=== PATIENT | male | born 1940 | race African-American/Black ===

== ENCOUNTER 2019-04-25 19:48 | Inpatient (IN) | payer OTHER, MEDICAID ==
[~2019-04-25] VITALS: Ht 182.9 cm; Wt 83.9 kg
[2019-04-25 20:00] VITALS: BP 101/53
[2019-04-25 21:17] LABS: BASOPHILS % 1.5 % (0.0-2.0); EOSINOPHILS % 2.4 % (0.0-5.0); HEMATOCRIT. 32.9 % (42.0-52.0); HEMOGLOBIN. 11.1 g/dL (14.0-18.0); LYMPHOCYTES % 7.6 % (20.0-50.0); MEAN CORPUSCULAR HEMOGLOBIN 34.2 pg (28.0-32.0); MEAN CORPUSCULAR VOLUME 101.1 fL (80.0-94.0); MEAN PLATELET VOLUME 8.7 fl (7.4-10.4); MONOCYTES % 7.7 % (2.0-8.0); NEUTROPHILS % 80.8 % (40.0-76.0); PLATELET 209 x1000/uL (130-400); RED BLOOD CELL COUNT 3.25 mill/uL (4.7-6.1); RED CELL DISTRIBUTION WIDTH 14.8 % (11.6-14.6)
[2019-04-25 21:22] LABS: CHLORIDE 102 mEq/L (98-107)
[2019-04-25] MEDS ORDERED: SODIUM CHLORIDE 0.9% 1,000 ML IV ONE (21:30)
[2019-04-25] MEDS ORDERED: ASPIRIN 325MG TABLET PO ONE (22:00)
[2019-04-25 22:45] VITALS: BP 130/68
[2019-04-25] MEDS ORDERED: FURO-151 PO (23:57)
[2019-04-26] MEDS ORDERED: IPRATROPIUM/ALBUTEROL 0.5-3(2.5)MG/3ML NEB HHN PRN
[2019-04-26] MEDS ORDERED: HYDROCODONE/ACETAMINOPHEN 5/325MG TABLET PO PRN
[2019-04-26] MEDS ORDERED: ONDANSETRON HCL 4MG/2ML INJ IV PRN
[2019-04-26] MEDS ORDERED: ACETAMINOPHEN 325MG TABLET PO PRN
[2019-04-26] MEDS ORDERED: CLONIDINE 0.1MG TABLET PO PRN
[2019-04-26 04:00] VITALS: BP 101/53
[2019-04-26 07:30] LABS: BASOPHILS % 0.7 % (0.0-2.0); EOSINOPHILS % 3.7 % (0.0-5.0); HEMATOCRIT. 30.2 % (42.0-52.0); HEMOGLOBIN. 10.3 g/dL (14.0-18.0); LYMPHOCYTES % 11.9 % (20.0-50.0); MEAN CORPUSCULAR HEMOGLOBIN 34.3 pg (28.0-32.0); MEAN CORPUSCULAR VOLUME 100.3 fL (80.0-94.0); MEAN PLATELET VOLUME 8.5 fl (7.4-10.4); MONOCYTES % 10.8 % (2.0-8.0); NEUTROPHILS % 72.9 % (40.0-76.0); PLATELET 185 x1000/uL (130-400); RED BLOOD CELL COUNT 3.02 mill/uL (4.7-6.1); RED CELL DISTRIBUTION WIDTH 14.8 % (11.6-14.6)
[2019-04-26 07:33] LABS: CHLORIDE 105 mEq/L (98-107)
[2019-04-26 07:44] LABS: LDL CHOLESTEROL 107 mg/dL (5-100)
[2019-04-26 07:45] LABS: CREATINE KINASE 67 IU/L (39-308); HDL CHOLESTEROL 41 mg/dL (40-59); T4 FREE 1.26 ng/dL (0.76-1.46)
[2019-04-26 07:57] VITALS: BP 116/63
[2019-04-26] MEDS: ENOXAPARIN 40MG/0.4ML SYR SUBCUT SCH (09:15)
[2019-04-26] MEDS: ASPIRIN 81MG TABLET PO SCH (10:24)
[2019-04-26 12:00] VITALS: BP 107/59
[2019-04-26 16:00] VITALS: BP 98/59
[2019-04-26] MEDS: ATORVASTATIN CALCIUM 20MG TABLET PO SCH (20:51)
[2019-04-27] VITALS: BP 105/58
[2019-04-27 04:00] VITALS: BP 105/68
[2019-04-27 06:46] LABS: METHADONE URINE SCREEN NEGATIVE (NEGATIVE); OPIATES URINE SCREEN NEGATIVE (NEGATIVE); PHENCYCLIDINE URINE SCREEN NEGATIVE (NEGATIVE)
[2019-04-27 06:47] LABS: BASOPHILS % 0.5 % (0.0-2.0); EOSINOPHILS % 3.6 % (0.0-5.0); HEMATOCRIT. 30.9 % (42.0-52.0); HEMOGLOBIN. 10.6 g/dL (14.0-18.0); LYMPHOCYTES % 10.7 % (20.0-50.0); MEAN CORPUSCULAR HEMOGLOBIN 34.5 pg (28.0-32.0); MEAN CORPUSCULAR VOLUME 100.3 fL (80.0-94.0); MEAN PLATELET VOLUME 8.9 fl (7.4-10.4); MONOCYTES % 11.4 % (2.0-8.0); NEUTROPHILS % 73.8 % (40.0-76.0); PLATELET 193 x1000/uL (130-400); RED BLOOD CELL COUNT 3.08 mill/uL (4.7-6.1)
[2019-04-27 06:47] LABS: *AMPHETAMINES SCREEN URINE NEGATIVE (NEGATIVE); *BARBITURATES SCREEN URINE NEGATIVE (NEGATIVE); *BENZODIAZEPINES SCREEN URINE NEGATIVE (NEGATIVE); *COCAINE SCREEN URINE NEGATIVE (NEGATIVE); CANNABINOID URINE SCREEN NEGATIVE (NEGATIVE)
[2019-04-27 07:45] VITALS: BP 108/62
[2019-04-27] MEDS: ASPIRIN 81MG TABLET PO SCH (09:31)
[2019-04-27] MEDS: ENOXAPARIN 40MG/0.4ML SYR SUBCUT SCH (09:31)
[2019-04-27 12:00] VITALS: BP_SYST 107; BP_SYST 111; BP_SYST 98; BP_DIAS 60; BP_DIAS 62
[2019-04-27] MEDS: DOCUSATE SODIUM SUGAR FREE 100MG/10ML UDC NG SCH (13:27)
[2019-04-27 16:00] VITALS: BP 108/59
[2019-04-27 20:00] VITALS: BP 111/60
[2019-04-27] MEDS: ATORVASTATIN CALCIUM 20MG TABLET PO SCH (20:48)
[2019-04-27] MEDS: CARVEDILOL 3.125 MG TABLET PO SCH (20:49)
[2019-04-28] VITALS: BP 106/62
[2019-04-28 04:00] VITALS: BP 118/69
[2019-04-28 08:00] VITALS: BP 103/60
[2019-04-28] MEDS: CARVEDILOL 3.125 MG TABLET PO SCH ×2 (09:00→20:37)
[2019-04-28] MEDS ORDERED: LISINOPRIL 2.5MG TABLET PO SCH (09:00)
[2019-04-28] MEDS: ENOXAPARIN 40MG/0.4ML SYR SUBCUT SCH (09:09)
[2019-04-28] MEDS: ASPIRIN 81MG TABLET PO SCH (09:10)
[2019-04-28] MEDS: DOCUSATE SODIUM SUGAR FREE 100MG/10ML UDC NG SCH (09:10)
[2019-04-28 12:00] VITALS: BP 110/69
[2019-04-28 16:00] VITALS: BP_SYST 93; BP_SYST 96; BP_DIAS 54; BP_DIAS 77
[2019-04-28 17:03] LABS: BG BASE EXCESS -1.7 mmol/L (-2.0-2.0); BG CARBOXYHEMOGLOBIN 0.2 % (0.5-1.5); BG FRACTION INSPIRED OXYGEN 21; BG HCO3 ACT 21.7 mmol/L (22.0-26.0); BG METHEMOGLOBIN 0.3 % (0.0-1.5); BG OXYHEMOGLOBIN 96.5 % (94.0-97.0); BG PCO2 32.5 mmHg (35.0-45.0); BG PH 7.442 (7.350-7.450); BG PO2 96.4 mmHg (75.0-100.0); BG SAMPLE SITE RIGHT RADIAL; BG TOTAL HEMOGLOBIN 11.9 g/dL (12.0-18.0); BG VENT MODE ROOM AIR
[2019-04-28 17:54] LABS: PROTHROMBIN TIME 10.7 sec (9.6-11.0)
[2019-04-28 20:00] VITALS: BP 113/66
[2019-04-28] MEDS: ATORVASTATIN CALCIUM 20MG TABLET PO SCH (20:37)
[2019-04-28 21:47] LABS: CLARITY URINE CLEAR (CLEAR); COLOR URINE YELLOW (YELLOW); KETONES URINE NEGATIVE (NEGATIVE); LEUKOCYTE ESTERASE URINE NEGATIVE (NEGATIVE); NITRITE URINE NEGATIVE (NEGATIVE); OCCULT BLOOD URINE NEGATIVE (NEGATIVE); PROTEIN URINE NEGATIVE (NEGATIVE); SPECIFIC GRAVITY URINE 1.008 (1.005-1.030)
[2019-04-29] VITALS (7 sets, daily range): BP systolic 97–130; BP diastolic 53–76
[2019-04-29 07:38] LABS: HEMATOCRIT 32.4 % (42.0-52.0); HEMOGLOBIN 11.1 g/dL (14.0-18.0); MEAN CORPUSCULAR HEMOGLOBIN 34.5 pg (28.0-32.0); MEAN CORPUSCULAR VOLUME 100.3 fL (80.0-94.0); PLATELET 195 x1000/uL (130-400); RED BLOOD CELL COUNT 3.23 mill/uL (4.7-6.1); RED CELL DISTRIBUTION WIDTH 14.8 % (11.6-14.6)
[2019-04-29] MEDS ORDERED: LOSARTAN POTASSIUM 25 MG TABLET PO SCH (09:00)
[2019-04-29] MEDS: DOCUSATE SODIUM SUGAR FREE 100MG/10ML UDC NG SCH (10:02)
[2019-04-29] MEDS: CARVEDILOL 3.125 MG TABLET PO SCH (10:02)
[2019-04-29] MEDS: ASPIRIN 81MG TABLET PO SCH (10:02)
[2019-04-29] MEDS: ENOXAPARIN 40MG/0.4ML SYR SUBCUT SCH (10:03)
[2019-04-29] MEDS ORDERED: LACTULOSE 20G/30ML UDC PO PRN ×2 (13:00)
[2019-04-29] MEDS ORDERED: ASPI-1393 MT (14:25)
[2019-04-29] MEDS ORDERED: LOSA25TA3 MT (14:25)
[2019-04-29] MEDS ORDERED: ATOR20TA MT (14:25)
[2019-04-29] MEDS ORDERED: LACT10SO MT (14:25)
[2019-04-29] MEDS ORDERED: COR3 MT (14:25)
[2019-04-29] MEDS ORDERED: BISACODYL 10MG SUPP PR PRN (14:30)
[2019-04-29] MEDS ORDERED: LACTULOSE 20G/30ML UDC PO SCH (14:30)
== END 2019-04-29 17:13 | disposition home or self-care (01) | DRG 74 ==
LOC: ER 19:48 → 8WST 21:52 → EDBEDREQ 21:55 → EDBEDREQTM 21:55 → ENRESERV 22:13
PROVIDERS: ADMIT Internal Medicine; ATTEND Internal Medicine
PROC: 4B02XTZ Measurement of Cardiac Defibrillator, External Approach (ICD-10-PCS; principal; 2019-04-28)
DX: G90.8 Other disorders of autonomic nervous system (principal); E87.1 Hypo-osmolality and hyponatremia; I50.22 Chronic systolic (congestive) heart failure; N17.9 Acute kidney failure, unspecified; I13.0 Hypertensive heart and chronic kidney disease with heart failure and stage 1 through stage 4 chronic kidney disease, or unspecified chronic kidney disease; D64.9 Anemia, unspecified; I25.5 Ischemic cardiomyopathy; I25.10 Atherosclerotic heart disease of native coronary artery without angina pectoris; N18.9 Chronic kidney disease, unspecified; E78.5 Hyperlipidemia, unspecified; K59.00 Constipation, unspecified; Z79.899 Other long term (current) drug therapy; Z95.810 Presence of automatic (implantable) cardiac defibrillator; I25.2 Old myocardial infarction; Z95.1 Presence of aortocoronary bypass graft
CPT/HCPCS: 36415; 36600; 71045; 74018; 80048; 80061; 80305; 81003; 82375; 82550; 82805; 84439; 84443; 84484; 85027; 93005; 93306; 93880; 93970; 96372; 97162; 97165; 99285; J1650; J7030